=== PATIENT | female | born 1975 | race Caucasian/White ===

== ENCOUNTER 2020-06-18 15:00 | Inpatient (IN) ==
[2020-06-18] MEDS ORDERED: Ondansetron ODT 4 MG TAB.RAPDIS SL PRN (21:15)
[2020-06-18] MEDS ORDERED: Naloxone 0.4 MG/ML INJ IVP PRN (21:15)
[2020-06-18] MEDS ORDERED: Ringers Solution, Lactated 1,000 ML IVC SCH (22:00)
[2020-06-18] MEDS ORDERED: D5% in Water 1,000 ML IVC PRN (22:10)
[2020-06-18] MEDS ORDERED: Dextrose Gel 15 GM/37.5 ML TUBE PO PRN ×2 (22:10)
[2020-06-18] MEDS ORDERED: *HR* Dextrose 50 % in Water (Vial) 50 ML VIAL IVP PRN (22:10)
[2020-06-18] MEDS: Insulin LISPRO 300 UNITS/3 ML VIAL SQ SCH (23:54)
[2020-06-19 01:23] LABS: Basophils % 0.3 %
[2020-06-19 01:26] LABS: Hematocrit 43.5 % (35.3-44.9); Hemoglobin 13.9 g/dL (11.5-15.4); Immature Granulocytes % 0.3 % (0-4); Immature Platelets 4.7 % (1.1-6.1); Lymphocytes # 0.7 K/mcL (0.6-4.6); Lymphocytes % 22.2 %; Mean Corpuscular Hemoglobin 28.1 pg (28.0-33.3); Mean Corpuscular Volume 88.1 fL (83.0-100.0); Mean Platelet Volume 10.6 fL (9.4-12.4); Monocytes # 0.2 K/mcL (0.0-1.3); Monocytes % 6.1 %; Neutrophils # 2.2 K/mcL (1.6-8.9); Platelet Count 131 K/mcL (140-400); Red Blood Count 4.94 M/mcL (3.82-4.97); Red Cell Distribution Width 13.6 % (11.5-14.5); Segmented Neutrophils % 71.1 %; White Blood Count 3.1 K/mcL (4.3-11.1)
[2020-06-19 01:30] LABS: INR 1.1; Prothrombin Time 12.8 Seconds (9.4-12.1)
[2020-06-19 01:41] LABS: BUN/Creatinine Ratio 14 (6-26); Blood Urea Nitrogen 9 mg/dL (6-20); Calcium 8.8 mg/dL (8.6-10.3); Carbon Dioxide 25 mEq/L (23-29); Chloride 105 mEq/L (98-107); Glucose 159 mg/dL (70-105); Osmolality,Calculated 290 (280-300); Potassium 3.8 mEq/L (3.5-5.1); Sodium 139 mEq/L (136-145); eGFR For African Americans > 60 (> 60); eGFR For Non-African Americans > 60 (> 60)
[2020-06-19 01:42] LABS: Phosphorous 1.8 mg/dL (2.7-4.5)
[2020-06-19 02:07] LABS: Platelet Estimate Slight Decrease (Normal); Reactive Lymphocytes Present (Not Present)
[2020-06-19] MEDS ORDERED: Ondansetron 4 MG/2 ML VIAL IVP PRN (04:25)
[2020-06-19] MEDS: *HR* Enoxaparin 40 MG/0.4 ML SYRINGE SQ SCH (04:36)
[2020-06-19] MEDS: Azithromycin 500 MG in 0.9 % Sodium Chloride 250 ML IVPB SCH (08:50)
[2020-06-19] MEDS: Dexamethasone 4 MG/ML VIAL IVP SCH (08:50)
[2020-06-19] MEDS: PARoxetine 20 MG TABLET PO SCH (08:52)
[2020-06-19] MEDS ORDERED: cefTRIAXone 1,000 MG in Water for inj. (sterile) 10 ML IVP SCH (09:00)
[2020-06-19] MEDS: Insulin LISPRO 300 UNITS/3 ML VIAL SQ SCH ×4 (09:32→19:51)
[2020-06-19] MEDS: Ondansetron 4 MG/2 ML VIAL IVP PRN (10:40)
[2020-06-20] MEDS: Ondansetron 4 MG/2 ML VIAL IVP PRN (03:11)
[2020-06-20] MEDS: *HR* Enoxaparin 40 MG/0.4 ML SYRINGE SQ SCH (04:43)
[2020-06-20] MEDS: Insulin LISPRO 300 UNITS/3 ML VIAL SQ SCH ×2 (08:35→10:50)
[2020-06-20 08:38] LABS: Immature Granulocytes % 0.3 % (0-4); Mean Corpuscular Volume 88.9 fL (83.0-100.0)
[2020-06-20] MEDS: Azithromycin 500 MG in 0.9 % Sodium Chloride 250 ML IVPB SCH (08:38)
[2020-06-20] MEDS: Dexamethasone 4 MG/ML VIAL IVP SCH (08:38)
[2020-06-20] MEDS: PARoxetine 20 MG TABLET PO SCH (08:38)
[2020-06-20 08:45] LABS: Basophils % 0.3 %; Eosinophils % 0.2 %; Hematocrit 42.5 % (35.3-44.9); Hemoglobin 13.9 g/dL (11.5-15.4); Lymphocytes # 1.5 K/mcL (0.6-4.6); Lymphocytes % 25.1 %; Mean Corpuscular HGB Conc 32.7 g/dL (31.6-35.5); Mean Corpuscular Hemoglobin 29.1 pg (28.0-33.3); Mean Platelet Volume 10.4 fL (9.4-12.4); Monocytes # 0.5 K/mcL (0.0-1.3); Monocytes % 8.8 %; Neutrophils # 3.8 K/mcL (1.6-8.9); Platelet Count 182 K/mcL (140-400); Red Blood Count 4.78 M/mcL (3.82-4.97); Red Cell Distribution Width 13.5 % (11.5-14.5); Segmented Neutrophils % 65.3 %; White Blood Count 5.8 K/mcL (4.3-11.1)
[2020-06-20 08:57] LABS: BUN/Creatinine Ratio 23 (6-26); Blood Urea Nitrogen 17 mg/dL (6-20); Calcium 9.3 mg/dL (8.6-10.3); Carbon Dioxide 27 mEq/L (23-29); Chloride 106 mEq/L (98-107); Glucose 145 mg/dL (70-105); Osmolality,Calculated 296 (280-300); Potassium 3.9 mEq/L (3.5-5.1); Sodium 141 mEq/L (136-145); eGFR For African Americans > 60 (> 60); eGFR For Non-African Americans > 60 (> 60)
[2020-06-20 09:12] LABS: Platelet Estimate Normal (Normal); Reactive Lymphocytes Present (Not Present); Toxic Granulation Present (Not Present)
[2020-06-20] MEDS ORDERED: Azithromycin 250 MG TABLET PO SCH (11:00)
[2020-06-20 12:29] VITALS: BP 139/83
[2020-06-20] MEDS ORDERED: PARoxetine 20 MG TABLET PO SCH (21:00)
[2020-06-21] MEDS ORDERED: Azithromycin 250 MG TABLET PO SCH (09:00)
== END 2020-06-20 17:06 | disposition home or self-care (01) | DRG 137 ==
LOC: 2NENU
PROVIDERS: ADMIT Internal Medicine; ATTEND Internal Medicine